=== PATIENT | female | born 1975 | race Caucasian/White ===

== ENCOUNTER 2019-12-10 18:29 | Emergency (ER) | payer MEDICAID ==
[~2019-12-10] VITALS: Ht 170.2 cm; Wt 80.3 kg
[2019-12-10 18:45] VITALS: Ht 170.2 cm; Wt 80.3 kg
[2019-12-10 19:47] VITALS: BP 132/83
== END 2019-12-10 19:30 | disposition home or self-care (01) ==
LOC: ED 18:29
DX: F41.9 Anxiety disorder, unspecified (principal); I10 Essential (primary) hypertension; G47.00 Insomnia, unspecified; F17.210 Nicotine dependence, cigarettes, uncomplicated; Z98.890 Other specified postprocedural states; Z90.49 Acquired absence of other specified parts of digestive tract; Z88.1 Allergy status to other antibiotic agents; Z88.2 Allergy status to sulfonamides
CPT/HCPCS: 99406